=== PATIENT | female | born 1990 | race African-American/Black ===

== ENCOUNTER 2020-12-17 03:35 | Emergency (ER) | payer BC, MEDICAID ==
[~2020-12-17] VITALS: Ht 162.6 cm; Wt 98.6 kg
[2020-12-17 03:42] VITALS: BP 119/92
[2020-12-17] MEDS ORDERED: LORAZEPAM 1MG TABLET PO ONE (04:30)
[2020-12-17 04:58] LABS: BASOPHILS % 0.6 % (0.0-2.0); EOSINOPHILS % 1.7 % (0.0-5.0); HEMOGLOBIN. 11.9 g/dL (12.0-16.0); LYMPHOCYTES % 24.3 % (20.0-50.0); MEAN CORPUSCULAR HEMOGLOBIN 30.1 pg (28.0-32.0); MEAN CORPUSCULAR VOLUME 88.8 fL (81.0-99.0); MEAN PLATELET VOLUME 7.4 fl (7.4-10.4); MONOCYTES % 10.8 % (2.0-8.0); NEUTROPHILS % 62.6 % (40.0-76.0); PLATELET 515 x1000/uL (130-400); RED BLOOD CELL COUNT 3.94 mill/uL (4.2-5.4); RED CELL DISTRIBUTION WIDTH 13.5 % (11.6-14.6)
[2020-12-17 05:05] LABS: CHLORIDE 104 mEq/L (98-107)
[2020-12-17] MEDS ORDERED: FAMOTIDINE 20MG TABLET PO ONE (05:30)
[2020-12-17] MEDS ORDERED: DEXAMETHASONE 4MG/ML 1ML VIAL IM ONE (05:45)
[2020-12-17] MEDS ORDERED: HYDR10TA34 MT (05:48)
[2020-12-17] MEDS ORDERED: DIPH-907 MT (07:06)
[2020-12-17] MEDS ORDERED: DIPHENHYDRAMINE 12.5MG/5ML UDC PO ONE (07:15)
== END 2020-12-17 07:25 | disposition home or self-care (01) ==
LOC: ER 03:35
DX: L29.9 Pruritus, unspecified (principal); R79.89 Other specified abnormal findings of blood chemistry; F12.10 Cannabis abuse, uncomplicated
CPT/HCPCS: 36415; 76705; 80053; 85025; 96372; 99284; J1100; Q0163

== ENCOUNTER 2021-09-26 04:46 | Emergency (ER) | payer MEDICARE, MEDICAID ==
[~2021-09-26] VITALS: Ht 162.6 cm; Wt 91.0 kg
[~2021-09-26 04:46] MED LIST: DIPH-907 MT; HYDR10TA34 MT
[2021-09-26] MEDS ORDERED: OXYCODONE HCL/ACETAMINOPHEN 5/325MG TABLET PO ONE (05:30)
[2021-09-26 06:52] LABS: BASOPHILS % 0.5 % (0.0-2.0); HEMOGLOBIN. 13.7 g/dL (12.0-16.0); LYMPHOCYTES % 34.7 % (20.0-50.0); MEAN CORPUSCULAR HEMOGLOBIN 32.1 pg (28.0-32.0); MEAN CORPUSCULAR VOLUME 93.7 fL (81.0-99.0); MEAN PLATELET VOLUME 7.7 fl (7.4-10.4); MONOCYTES % 10.2 % (2.0-8.0); NEUTROPHILS % 53.6 % (40.0-76.0); PLATELET 277 x1000/uL (130-400); RED BLOOD CELL COUNT 4.26 mill/uL (4.2-5.4); RED CELL DISTRIBUTION WIDTH 13.1 % (11.6-14.6)
[2021-09-26 06:53] LABS: CHLORIDE 107 mEq/L (98-107)
[2021-09-26 06:54] LABS: HCG SCREEN NEGATIVE
[2021-09-26 07:18] VITALS: BP 110/66
[2021-09-26] MEDS ORDERED: TOPUD PO (08:19)
== END 2021-09-26 08:48 | disposition home or self-care (01) ==
LOC: ER 04:46
DX: R07.89 Other chest pain (principal); F12.10 Cannabis abuse, uncomplicated; Z98.890 Other specified postprocedural states
CPT/HCPCS: 36415; 71045; 80053; 84484; 84703; 85025; 93005; 99285

== ENCOUNTER 2022-06-21 16:22 | Inpatient (IN) | payer MEDICARE, MEDICAID ==
[~2022-06-21] VITALS: Ht 160 cm; Wt 99.3 kg
[~2022-06-21 16:22] MED LIST changes: +TOPUD PO
[2022-06-21] MEDS ORDERED: RHO(D) IMMUNE GLOBULIN 300 MCG/SYR IM NR (17:00)
[2022-06-21] MEDS ORDERED: LACTATED RINGERS 1,000 ML IV SCH (17:15)
[2022-06-21] MEDS ORDERED: OXYTOCIN 30 UNITS/500ML NS PMX 500 ML IV SCH ×2 (17:15→20:15)
[2022-06-21] MEDS ORDERED: EPHEDRINE SULFATE 50MG/ML VIAL ONE (18:05)
[2022-06-21] MEDS ORDERED: MORPHINE SULFATE/PF 1MG/ML 10ML AMP ONE (18:05)
[2022-06-21] MEDS ORDERED: FENTANYL CITRATE/PF 50MCG/ML 2ML VIAL ONE (18:05)
[2022-06-21] MEDS ORDERED: PHENYLEPHRINE HCL 10 MG/ML 1ML (IV VIAL) IV ONE (18:05)
[2022-06-21] MEDS ORDERED: CEFAZOLIN SODIUM 1000MG/VIAL ONE (18:06)
[2022-06-21] MEDS ORDERED: OXYTOCIN 10 UNITS/ML 1ML ONE (18:06)
[2022-06-21] MEDS ORDERED: ONDANSETRON HCL 4MG/2ML INJ ONE (18:06)
[2022-06-21 18:39] LABS: BASOPHILS % 0.7 % (0.0-2.0); EOSINOPHILS % 0.8 % (0.0-5.0); HEMATOCRIT. 38.6 % (36.0-48.0); LYMPHOCYTES % 23.8 % (20.0-50.0); MEAN CORPUSCULAR HEMOGLOBIN 32.3 pg (28.0-32.0); MEAN CORPUSCULAR VOLUME 95.8 fL (81.0-99.0); MEAN PLATELET VOLUME 9.1 fl (7.4-10.4); MONOCYTES % 9.1 % (2.0-8.0); NEUTROPHILS % 65.6 % (40.0-76.0); PLATELET 249 x1000/uL (130-400); RED BLOOD CELL COUNT 4.03 mill/uL (4.2-5.4); RED CELL DISTRIBUTION WIDTH 13.7 % (11.6-14.6)
[2022-06-21 18:48] LABS: CLARITY URINE CLEAR (CLEAR); COLOR URINE YELLOW (YELLOW); KETONES URINE NEGATIVE (NEGATIVE); LEUKOCYTE ESTERASE URINE NEGATIVE (NEGATIVE); NITRITE URINE NEGATIVE (NEGATIVE); OCCULT BLOOD URINE NEGATIVE (NEGATIVE); PROTEIN URINE NEGATIVE (NEGATIVE)
[2022-06-21 18:49] LABS: CHLORIDE 109 mEq/L (98-107)
[2022-06-21] MEDS: CITRIC ACID/SODIUM CITRATE SOLN 30ML UDC PO NR ×2 (19:20→23:22)
[2022-06-21 19:22] LABS: HEPATITIS B SURFACE ANTIGEN NEGATIVE
[2022-06-21 19:22] LABS: *AMPHETAMINES SCREEN URINE NEGATIVE (NEGATIVE); *BARBITURATES SCREEN URINE NEGATIVE (NEGATIVE); *BENZODIAZEPINES SCREEN URINE NEGATIVE (NEGATIVE); *COCAINE SCREEN URINE NEGATIVE (NEGATIVE); CANNABINOID URINE SCREEN NEGATIVE (NEGATIVE); METHADONE URINE SCREEN NEGATIVE (NEGATIVE); OPIATES URINE SCREEN NEGATIVE (NEGATIVE); PHENCYCLIDINE URINE SCREEN NEGATIVE (NEGATIVE)
[2022-06-21] MEDS ORDERED: DIPHENHYDRAMINE 50MG/ML VIAL ONE (19:42)
[2022-06-21] MEDS ORDERED: KETOROLAC 60MG/2ML VIAL IM ONE (19:48)
[2022-06-21] MEDS ORDERED: METOCLOPRAMIDE HCL 10MG/2ML VIAL ONE (19:57)
[2022-06-21 20:05] LABS: INR 0.9; PARTIAL THROMBOPLASTIN TIME 29.8 sec (23.4-31.0); PROTHROMBIN TIME 9.8 sec (9.6-11.0)
[2022-06-21] MEDS ORDERED: LANOLIN OINT 7GM TUBE TOP PRN (20:15)
[2022-06-21] MEDS ORDERED: ONDANSETRON HCL 4MG/2ML INJ IV PRN (20:15)
[2022-06-21] MEDS ORDERED: IBUPROFEN 400MG TABLET PO PRN (20:15)
[2022-06-21] MEDS ORDERED: RHO(D) IMMUNE GLOBULIN 300 MCG/SYR IM PRN (20:15)
[2022-06-21] MEDS ORDERED: DIPHENHYDRAMINE 25MG CAPSULE PO PRN (20:15)
[2022-06-21] MEDS ORDERED: BUTORPHANOL TARTRATE 2 MG/ML VIAL IV PRN (21:00)
[2022-06-21] MEDS ORDERED: DIPHENHYDRAMINE 50MG/ML VIAL IV PRN (21:00)
[2022-06-21] MEDS ORDERED: NALOXONE HCL 0.4 MG/ML 1ML VIAL IV PRN (21:00)
[2022-06-21] MEDS: KETOROLAC 30MG/ML VIAL IV SCH (23:37)
[2022-06-22 00:48] VITALS: BP 110/59
[2022-06-22 04:02] VITALS: BP 92/45
[2022-06-22 06:19] LABS: BASOPHILS % 0.2 % (0.0-2.0); EOSINOPHILS % 0.5 % (0.0-5.0); HEMATOCRIT. 31.5 % (36.0-48.0); HEMOGLOBIN. 10.7 g/dL (12.0-16.0); LYMPHOCYTES % 16.6 % (20.0-50.0); MEAN CORPUSCULAR HEMOGLOBIN 32.4 pg (28.0-32.0); MEAN CORPUSCULAR VOLUME 95.3 fL (81.0-99.0); MEAN PLATELET VOLUME 8.7 fl (7.4-10.4); MONOCYTES % 10.2 % (2.0-8.0); NEUTROPHILS % 72.5 % (40.0-76.0); PLATELET 195 x1000/uL (130-400); RED BLOOD CELL COUNT 3.31 mill/uL (4.2-5.4); RED CELL DISTRIBUTION WIDTH 13.7 % (11.6-14.6)
[2022-06-22 08:00] VITALS: BP 96/54
[2022-06-22] MEDS: KETOROLAC 30MG/ML VIAL IV SCH ×2 (08:51→14:55)
[2022-06-22] MEDS: MAGNESIUM/ALUMINUM HYDROXIDE/SIMETHICONE 30ML UDC PO SCH ×5 (09:55→21:14)
[2022-06-22] MEDS: SIMETHICONE 80MG TABLET CHEW PO SCH ×5 (09:55→21:14)
[2022-06-22] MEDS: FERROUS SULFATE 325MG TABLET PO SCH ×4 (09:55→21:13)
[2022-06-22] MEDS: PRENATAL VIT/FE FUMARATE/FA TABLET PO SCH (09:55)
[2022-06-22 12:00] VITALS: BP 97/48
[2022-06-22 16:00] VITALS: BP 112/50
[2022-06-22 19:30] VITALS: BP 132/75
[2022-06-22] MEDS: DOCUSATE SODIUM 100MG CAPSULE PO SCH (21:14)
[2022-06-22] MEDS: IBUPROFEN 800MG TABLET PO PRN (21:14)
[2022-06-22] MEDS: BISACODYL 10MG SUPP PR PRN ×2 (22:30→23:48)
[2022-06-23 04:00] VITALS: BP 113/66
[2022-06-23] MEDS: HYDROCODONE/ACETAMINOPHEN 5/325MG TABLET PO PRN ×4 (04:11→21:29)
[2022-06-23 08:00] VITALS: BP 115/61
[2022-06-23] MEDS: PRENATAL VIT/FE FUMARATE/FA TABLET PO SCH (08:23)
[2022-06-23] MEDS: MAGNESIUM/ALUMINUM HYDROXIDE/SIMETHICONE 30ML UDC PO SCH ×3 (08:23→21:22)
[2022-06-23] MEDS: FERROUS SULFATE 325MG TABLET PO SCH ×3 (08:23→17:30)
[2022-06-23] MEDS: SIMETHICONE 80MG TABLET CHEW PO SCH ×3 (08:23→21:21)
[2022-06-23] MEDS ORDERED: IBUP-2030 MT (09:10)
[2022-06-23 16:00] VITALS: BP 112/67
[2022-06-23 19:30] VITALS: BP 122/81
[2022-06-23] MEDS: DOCUSATE SODIUM 100MG CAPSULE PO SCH (21:21)
[2022-06-24 04:00] VITALS: BP 120/84
[2022-06-24] MEDS: FERROUS SULFATE 325MG TABLET PO SCH (07:30)
[2022-06-24] MEDS: SIMETHICONE 80MG TABLET CHEW PO SCH (08:00)
[2022-06-24 08:55] VITALS: BP 122/65
[2022-06-24] MEDS: MAGNESIUM/ALUMINUM HYDROXIDE/SIMETHICONE 30ML UDC PO SCH (09:32)
[2022-06-24 09:33] VITALS: BP 122/65
[2022-06-24] MEDS: IBUPROFEN 800MG TABLET PO PRN (09:33)
[2022-06-24] MEDS: PRENATAL VIT/FE FUMARATE/FA TABLET PO SCH (09:33)
== END 2022-06-24 11:20 | disposition home or self-care (01) | DRG 787 ==
LOC: 8 EST LDRP 16:22 → OBSVTOIN 16:22 → 8EST 23:47
PROVIDERS: ADMIT Specialist; ATTEND Specialist
PROC: 10D00Z1 Extraction of Products of Conception, Low, Open Approach (ICD-10-PCS; principal; 2022-06-21)
DX: O34.211 Maternal care for low transverse scar from previous cesarean delivery (principal); D62 Acute posthemorrhagic anemia; O99.02 Anemia complicating childbirth; O99.214 Obesity complicating childbirth; Z20.822 Contact with and (suspected) exposure to COVID-19; Z72.0 Tobacco use; Z3A.38 38 weeks gestation of pregnancy; Z37.0 Single live birth; Z82.49 Family history of ischemic heart disease and other diseases of the circulatory system
CPT/HCPCS: 36415; 76805; 76818; 80053; 80305; 81003; 85025; 86592; 86593; 86703; 86762; 86780; 86850; 86900; 86920; 87340; 87426; 88307; J0690; J1200; J1885; J2274; J2370; J2405; J2765; J3010; J3490; A4315; J2590